=== PATIENT | female | born 1965 | race Caucasian/White ===

== ENCOUNTER 2019-05-04 21:24 | Emergency (ER) | payer MEDICARE, OTHER | END 2019-05-04 22:21 | disposition home or self-care (01) | LOC: EDH 21:24 | DX: S93.402A Sprain of unspecified ligament of left ankle, initial encounter (principal); Z90.710 Acquired absence of both cervix and uterus; X50.1XXA Overexertion from prolonged static or awkward postures, initial encounter; Y93.89 Activity, other specified; Y92.89 Other specified places as the place of occurrence of the external cause; Y99.8 Other external cause status | CPT/HCPCS: 29515; 73610 ==